=== PATIENT | male | born 1945 | race Caucasian/White ===

== ENCOUNTER 2023-07-12 11:00 | Inpatient (IN) | payer OTHER ==
[2023-07-12 12:54] LABS: BASO % 0.6 % (0-2.0); EOS % 6.2 % (0-4.5); HEMATOCRIT 37.3 % (35.4-49); LYMPH % 34.1 % (8-40); MCH 28.6 pg (25.7-33.7); MCHC 34.8 g/dl (32.0-35.9); MEAN CELL VOLUME 82.4 fl (80-96); MEAN PLT VOLUME 8.8 fl (7.5-11.1); MONO % 12.5 % (3.8-10.2); NEUT % 46.6 % (42.8-82.8); PLATELET COUNT 209 10^3/uL (134-434); RBC 4.52 M/mm3 (4.00-5.60); RDW 12.8 % (11.9-15.9); WHITE BLOOD COUNT 6.4 K/mm3 (4.0-10.0)
[2023-07-12 13:18] LABS: POTASSIUM 4.9 mmol/L (3.5-5.1)
[2023-07-12 13:20] LABS: CALCIUM 9.5 mg/dL (8.5-10.1)
[2023-07-12 13:21] LABS: ALBUMIN 3.9 g/dl (3.4-5.0); BLOOD UREA NITROGEN 37.8 mg/dL (7-18)
[2023-07-12 13:24] LABS: CREATININE 1.3 mg/dL (0.55-1.3)
[2023-07-12 13:25] LABS: BILIRUBIN,TOTAL 0.2 mg/dL (0.2-1)
[2023-07-12 13:26] LABS: TOT PROT 8.5 g/dl (6.4-8.2)
[2023-07-12] MEDS ORDERED: SODIUM CHLORIDE 0.9% 500 ML INFUS.BAG IV ONE (13:50)
[2023-07-12] MEDS ORDERED: ACETAMINOPHEN 1000 MG/100 ML BAG IVPB ONE (15:01)
[2023-07-12] MEDS ORDERED: ACETAMINOPHEN INJECTION 100 ML IVPB ONE (15:04)
[2023-07-12 15:27] LABS: PH,URINE 6.5 (5.0-8.0); URINE APPEARANCE Clear; URINE BILIRUBIN Negative (NEGATIVE); URINE COLOR Yellow; URINE GLUCOSE (UA) Negative (NEGATIVE); URINE KETONE Negative (NEGATIVE); URINE LEUK ESTERASE Negative (NEGATIVE); URINE NITRITE Negative (NEGATIVE); URINE PROTEIN Negative (NEGATIVE); URINE UROBILINOGEN 0.2 mg/dL (0.2-1.0)
[2023-07-12] MEDS ORDERED: QUEtiapine FUMARATE 50 MG TABLET PO SCH (20:00)
[2023-07-12] MEDS: QUEtiapine FUMARATE 25 MG TABLET PO SCH (21:08)
[2023-07-12] MEDS: ACETAMINOPHEN 325 MG TABLET (FP) PO PRN (23:37)
[2023-07-13] MEDS: ENOXAPARIN NA (PORCINE) 40 MG/0.4 ML DISP.SYRIN SQ SCH (09:58)
[2023-07-13] MEDS: ACETAMINOPHEN 325 MG TABLET (FP) PO PRN (09:58)
[2023-07-13] MEDS: QUEtiapine FUMARATE 25 MG TABLET PO SCH (21:46)
[2023-07-14] MEDS: ENOXAPARIN NA (PORCINE) 40 MG/0.4 ML DISP.SYRIN SQ SCH (09:22)
[2023-07-14] MEDS: ACETAMINOPHEN 325 MG TABLET (FP) PO PRN (10:41)
[2023-07-14 12:17] VITALS: BMI 19.1
[2023-07-14] MEDS: AMINO ACIDS/PROTEIN HYDROLYS 30 ML LIQUID.PKT PO SCH (19:04)
[2023-07-14] MEDS: QUEtiapine FUMARATE 25 MG TABLET PO SCH (21:30)
[2023-07-14] MEDS: DONEPEZIL HCL 5 MG TABLET (FP) PO SCH (21:30)
[2023-07-15] MEDS: AMINO ACIDS/PROTEIN HYDROLYS 30 ML LIQUID.PKT PO SCH ×2 (08:41→18:22)
[2023-07-15] MEDS: ENOXAPARIN NA (PORCINE) 40 MG/0.4 ML DISP.SYRIN SQ SCH (10:42)
[2023-07-15] MEDS: QUEtiapine FUMARATE 25 MG TABLET PO SCH (22:10)
[2023-07-15] MEDS: DONEPEZIL HCL 5 MG TABLET (FP) PO SCH (22:10)
[2023-07-16] MEDS: AMINO ACIDS/PROTEIN HYDROLYS 30 ML LIQUID.PKT PO SCH ×2 (09:09→16:57)
[2023-07-16] MEDS: ENOXAPARIN NA (PORCINE) 40 MG/0.4 ML DISP.SYRIN SQ SCH (10:10)
[2023-07-16] MEDS: ACETAMINOPHEN 325 MG TABLET (FP) PO PRN (10:14)
[2023-07-16] MEDS: QUEtiapine FUMARATE 25 MG TABLET PO SCH (21:59)
[2023-07-16] MEDS: MEMANTINE HCL 5 MG TABLET (UD) PO SCH (21:59)
[2023-07-16] MEDS: DONEPEZIL HCL 5 MG TABLET (FP) PO SCH (21:59)
[2023-07-17 05:44] VITALS: RESP 18
[2023-07-17] MEDS: ENOXAPARIN NA (PORCINE) 40 MG/0.4 ML DISP.SYRIN SQ SCH (09:48)
[2023-07-17] MEDS: MEMANTINE HCL 5 MG TABLET (UD) PO SCH (09:48)
[2023-07-17] MEDS: ACETAMINOPHEN 325 MG TABLET (FP) PO PRN (09:48)
[2023-07-17] MEDS: AMINO ACIDS/PROTEIN HYDROLYS 30 ML LIQUID.PKT PO SCH (09:48)
[2023-07-17 14:17] VITALS: BP 135/70; PULSE 60; TEMP 98
== END 2023-07-17 16:45 | DRG 556 ==
LOC: JER 11:00 → EDBD 16:22 → JERBED 16:22 → J5S 17:32
PROVIDERS: ADMIT Internal Medicine; ATTEND Family Medicine
DX: R26.2 Difficulty in walking, not elsewhere classified (principal); M25.552 Pain in left hip; I10 Essential (primary) hypertension; G30.9 Alzheimer's disease, unspecified; F02.80 Dementia in other diseases classified elsewhere, unspecified severity, without behavioral disturbance, psychotic disturbance, mood disturbance, and anxiety; E11.9 Type 2 diabetes mellitus without complications
CPT/HCPCS: 36415; 70450-TC; 71045-TC-FY; 72170-TC-FY; 73521-TC-FY; 73700-TC-RT; 80053; 81003; 82962; 84443; 84484; 85025; 87086; 87635; 93005; 93010; 97116-GP; 97162-GP; 99285-25

== ENCOUNTER 2024-06-15 21:52 | Observation (INO) | payer OTHER ==
[2024-06-15 23:02] LABS: BASO % 0.4 % (0-2.0); EOS % 3.9 % (0-4.5); HEMATOCRIT 34.8 % (35.4-49); HEMOGLOBIN 11.6 GM/dL (11.7-16.9); LYMPH % 29.6 % (8-40); MCH 28.1 pg (25.7-33.7); MCHC 33.4 g/dl (32.0-35.9); MEAN CELL VOLUME 84.3 fl (80-96); MEAN PLT VOLUME 9.3 fl (7.5-11.1); MONO % 11.2 % (3.8-10.2); NEUT % 54.9 % (42.8-82.8); PLATELET COUNT 181 10^3/uL (134-434); RBC 4.13 M/mm3 (4.00-5.60); RDW 14.1 % (11.9-15.9); WHITE BLOOD COUNT 8.8 K/mm3 (4.0-10.0)
[2024-06-15 23:26] LABS: CALCIUM 10.1 mg/dL (8.5-10.1)
[2024-06-15 23:27] LABS: ALBUMIN 4.4 g/dl (3.4-5.0); BLOOD UREA NITROGEN 43.3 mg/dL (7-18); MAGNESIUM 2.2 mg/dL (1.8-2.4)
[2024-06-15 23:30] LABS: CREATININE 1.4 mg/dL (0.55-1.3); PHOSPHOROUS 4.4 mg/dL (2.5-4.9)
[2024-06-15 23:31] LABS: BILIRUBIN,TOTAL 0.5 mg/dL (0.2-1); TOT PROT 8.8 g/dl (6.4-8.2)
[2024-06-16] MEDS: LACTATED RINGERS SOLUTION 1000 ML INFUS.BAG IV ONE (00:21)
[2024-06-16] MEDS: SODIUM CHLORIDE 0.45% 1,000 ML IV SCH (02:09)
[2024-06-16] MEDS: INSULIN ASPART SLIDING SCALE (NOVOLOG) 1 VIAL SQ SCH (06:28)
[2024-06-16] MEDS: LORazepam 2 MG/ML SDV VIAL IM ONE (07:05)
[2024-06-16 07:45] LABS: BASO % 0.7 % (0-2.0); EOS % 3.3 % (0-4.5); HEMATOCRIT 33.2 % (35.4-49); HEMOGLOBIN 11.1 GM/dL (11.7-16.9); LYMPH % 29.5 % (8-40); MCH 28.1 pg (25.7-33.7); MCHC 33.3 g/dl (32.0-35.9); MEAN CELL VOLUME 84.4 fl (80-96); MONO % 11.8 % (3.8-10.2); NEUT % 54.7 % (42.8-82.8); PLATELET COUNT 168 10^3/uL (134-434); RBC 3.93 M/mm3 (4.00-5.60); RDW 14.1 % (11.9-15.9); WHITE BLOOD COUNT 9.2 K/mm3 (4.0-10.0)
[2024-06-16 08:06] LABS: POTASSIUM 4.4 mmol/L (3.5-5.1)
[2024-06-16 08:10] LABS: BLOOD UREA NITROGEN 40.7 mg/dL (7-18)
[2024-06-16 08:13] LABS: CREATININE 1.3 mg/dL (0.55-1.3)
[2024-06-16 09:15] LABS: PH,URINE 5.5 (5.0-8.0); URINE APPEARANCE CLEAR; URINE BILIRUBIN NEGATIVE (NEGATIVE); URINE COLOR YELLOW; URINE GLUCOSE (UA) NEGATIVE (NEGATIVE); URINE KETONE TRACE (NEGATIVE); URINE LEUK ESTERASE NEGATIVE (NEGATIVE); URINE NITRITE NEGATIVE (NEGATIVE); URINE PROTEIN NEGATIVE (NEGATIVE); URINE UROBILINOGEN 0.2 mg/dL (0.2-1.0)
[2024-06-17] MEDS: POLYETHYLENE GLYCOL (HEALTHYLAX) 3350 17 GM PACKET PO SCH (09:35)
[2024-06-17 13:45] VITALS: BMI 17.8
[2024-06-17] MEDS: QUEtiapine FUMARATE 25 MG TABLET PO SCH (22:01)
[2024-06-18] MEDS: AMINO ACIDS/PROTEIN HYDROLYS 30 ML LIQUID.PKT PO SCH (08:48)
[2024-06-19] MEDS ORDERED: ACETAMINOPHEN 325 MG TABLET (FP) PO PRN (16:38)
[2024-06-19] MEDS: LORazepam 2 MG/ML SDV VIAL IM ONE (20:02)
[2024-06-21 07:57] LABS: HEMATOCRIT 33.5 % (35.4-49); HEMOGLOBIN 11.1 GM/dL (11.7-16.9); MCH 27.8 pg (25.7-33.7); MCHC 33.1 g/dl (32.0-35.9); MEAN CELL VOLUME 84.2 fl (80-96); MEAN PLT VOLUME 9.1 fl (7.5-11.1); PLATELET COUNT 193 10^3/uL (134-434); RBC 3.98 M/mm3 (4.00-5.60)
[2024-06-21 08:17] LABS: POTASSIUM 4.5 mmol/L (3.5-5.1)
[2024-06-21 08:39] LABS: ALBUMIN 3.6 g/dl (3.4-5.0); BLOOD UREA NITROGEN 29.6 mg/dL (7-18); CALCIUM 9.9 mg/dL (8.5-10.1)
[2024-06-21 08:42] LABS: CREATININE 1.2 mg/dL (0.55-1.3)
[2024-06-21 08:44] LABS: BILIRUBIN,TOTAL 0.5 mg/dL (0.2-1); TOT PROT 7.4 g/dl (6.4-8.2)
[2024-06-21 15:13] VITALS: RESP 20; TEMP 98.2
[2024-06-21 19:08] VITALS: BP 129/75; PULSE 81
== END 2024-06-21 20:41 ==
LOC: JER 21:52 → JERBED 06-16 00:07 → J4W 06-16 03:46
PROVIDERS: ADMIT Internal Medicine; ATTEND Family Medicine
PROC: 3E013VG Introduction of Insulin into Subcutaneous Tissue, Percutaneous Approach (ICD-10-PCS; principal; 2024-06-16)
PROC: 3E0233Z Introduction of Anti-inflammatory into Muscle, Percutaneous Approach (ICD-10-PCS; 2024-06-16)
PROC: 3E033NZ Introduction of Analgesics, Hypnotics, Sedatives into Peripheral Vein, Percutaneous Approach (ICD-10-PCS; 2024-06-16)
DX: G30.9 Alzheimer's disease, unspecified (principal); F02.80 Dementia in other diseases classified elsewhere, unspecified severity, without behavioral disturbance, psychotic disturbance, mood disturbance, and anxiety; R62.7 Adult failure to thrive; E11.9 Type 2 diabetes mellitus without complications; I10 Essential (primary) hypertension; M19.90 Unspecified osteoarthritis, unspecified site; K59.00 Constipation, unspecified; R50.9 Fever, unspecified; R07.9 Chest pain, unspecified; R53.1 Weakness
CPT/HCPCS: 0241U-QW; 36415; 70450-TC; 71045-TC-FY; 80048; 80053; 81003; 82728; 82962; 83036; 83540; 83550; 83735; 84100; 84443; 84484; 85025; 85027; 87086; 93005; 93010; 96372; 96374; 97116-GP; 97162-GP; 99285-25; G0378